=== PATIENT | female | born 1990 | race Asian ===

== ENCOUNTER 2019-11-15 17:35 | Inpatient (IN) | payer BC ==
[2019-11-15 18:41] VITALS: BMI 28.3
[2019-11-15] MEDS ORDERED: ELECTROLYTE-148 SOLN 1,000 ML IV SCH (18:45)
--- NOTE | 2019-11-15 18:58 | HP ---
Past Medical History - Primary Care Physician PCP:: Jhonathan Damico - Admission Chief Complaint: 29 yo P0 with at EGA 38w5d with SROM at 2:40pm and painful contractions since 4pm. History of Present Illness: care complicated by abdnormal GCT and negative GTT. She was followed for suspected LGA fetus and the last US was 3 wks ago showing AGA baby in 77th % ile. Vaginal GBS was negative. History Source: Patient, Medical Record Limitations to Obtaining History: No Limitations - Past Medical History RODENT EXTERMINATOR: No: Alzheimer's, CVA, Dementia, Migraine, Multiple Sclerosis, Peripheral Neuropathy, Parkinson's, Seizure, Syncope, TIA, Vertigo, Other Cardiovascular: No: AFIB, Aneurysm, Aortic Insufficiency, Aortic Stenosis, CAD, CHF, Deep Vein Thrombosis, HTN, Hyperlipdemia, IL, Mitral Insufficiency, Mitral Stenosis, Murmur, Pulmonary Hypertension, Other Pulmonary: No: Asthma, Bronchitis, Cancer, COPD, O2 Dependent, Pneumonia, Previously Intubated, Pulmonary Embolus, Pulmonary Fibrosis, Sleep Apnea, Other Gastrointestinal: No: Ascites, Cancer, Constipation, Crohn's Disease, Diverticulitis, Diverticulosis, Esophageal Varices, Gastritis, GERD, GI Bleed, Hemorrhoids, Hiatal Hernia, Inflamatory Bowel Disease, Irritable Bowel Disease, Pancreatitis, Peptic Ulcer Disease, Ulcerative Colitis, Other Hepatobiliary: No: Cirrhosis, Cholelithiasis, Cholecystitis, Choledocholithiasis , Hepatitis A, Hepatitis B, Hepatitis C, Other Renal/: No: Renal Failure, Renal Inusuff, BPH, Cancer, Hematuria, Hemodialysis , Neurogenic Bladder, Renal Calculi, UTI, Other Reproductive: No: Ectopic , Endometriosis, Fibroids, PID, Polycystic Ovary Syndrome, Postmenopausal, Other ...: 2 ...Para: 0 ...Term: 0 ...: 0 ...Spon : 1 ...Induced : 0 ...Multiple Gestation: 0 ...LMP: 02/12/19 ...EDC by Dates: 11/22/19 ...EDC by Sono: 11/24/19 Heme/Onc: No: Anemia, B12 Deficiency, Bleeding Disorder, Cancer, Current Chemotherapy, Current Radiation Therapy, Hemochromatosis, Hypercoaguable State, Myeloproliferative Synd, Sickle Cell Disease, Sickle Cell Trait, Thrombocytopenia, Other Infectious Disease: No: AIDS, C-Diff, Herpes Zoster, HIV, MRSA, STD's, Tuberculosis, VREF, Other Psych: No: Addictions, Anxiety, Bipolar, Depression, Panic, Psychosis, Schizophrenia, Other Musculoskeletal: No: Bursitis, Chronic low back pain, Hemiparesis, Hemiplegia, Osteoarthritis, Paraplegia, Other Rheumatology: No: Fibromyalgia, Gout, Lupus, Rheumatoid Arthritis, Sarcoidosis, Vasculitis, Other ENT: No: Allergic Rhinitis, Sinusitis, Other Endocrine: No: Natural Dam's Disease, Mike's Disease, Diabetes Insipidus, Diabetes Mellitus, Hyperparathyroidism, Hyperthyroidism, Hypothyroidism, Osteopenia, SIADH, Other Dermatology: No: Basal Cell, Cellulitis, Eczema, Melanoma, Psoriasis, Squamous Cell, Other - Past Surgical History Past Surgical History: Yes: None Hx Myomectomy: No Hx Transabdominal Cerclage: No - Smoking History Smoking history: Never smoked Have you smoked in the past 12 months: No - Alcohol/Substance Use Hx Alcohol Use: No History of Substance Use: reports: None - Social History Usual Living Arrangement: Yes: With Spouse Do you think of yourself as: Straight/Heterosexual ADL: Independent History of Recent Travel: No Home Medications - Allergies Allergies/Adverse Reactions: Allergies Allergy/AdvReac Type Severity Reaction Status Date / Time ampicillin Allergy Rash Verified 11/15/19 18:03 Penicillins Allergy Rash Verified 11/15/19 18:03 - Home Medications Home Medications: Ambulatory Orders Pnv No.95/Ferrous Fum/Folic AC [ Vitamin Tablet] 1 each PO DAILY Family Medical History Family History: Denies Review of Systems - Review of Systems Constitutional: reports: No Symptoms Eyes: reports: No Symptoms HENT: reports: No Symptoms Neck: reports: No Symptoms Cardiovascular: reports: No Symptoms Respiratory: reports: No Symptoms Gastrointestinal: reports: No Symptoms Genitourinary: reports: No Symptoms Breasts: reports: No Symptoms Reported Musculoskeletal: reports: No Symptoms Integumentary: reports: No Symptoms Neurological: reports: No Symptoms Endocrine: reports: No Symptoms Hematology/Lymphatic: reports: No Symptoms Psychiatric: reports: No Symptoms Pain Intensity: 8 Physical Exam - Maternity Vital Signs: Vital Signs Temperature 98.8 F 11/15/19 18:10 Pulse Rate 86 11/15/19 18:10 Respiratory Rate 20 11/15/19 18:10 Blood Pressure 127/81 11/15/19 18:10 O2 Sat by Pulse Oximetry (%) Constitutional: Yes: Well Nourished, No Distress, Calm Eyes: Yes: WNL, Conjunctiva Clear, EOM Intact HENT: Yes: WNL, Atraumatic, Normocephalic Neck: Yes: WNL, Supple, Trachea Midline Cardiovascular: Yes: WNL, Regular Rate and Rhythm Lungs: Clear to auscultation, Normal air movement - Abdominal Exam/OB Fundal Height: 39 Number of Fetuses: Single Presentation: Vertex Contractions: Yes Regularity: Irregular Intensity: Moderate Monitor Mode: External Heart Rate (range): 150 Heart Rate Location: Midline Category: I Accelerations: Uniform Decelerations: None - Vaginal Exam/OB Vaginal Bleediing: No Speculum Exam: No Dilatation (cm): 2 Effacement (%): 90 Amniotic Membrane Status: Leaking Nitrazine Test: Positive Amniotic Fluid: Yes: Clear Presentation: Vertex/Position Station: -1 (Gynecoid pelvimetry) - Physical Exam Musculoskeletal: Yes: WNL Extremities: Yes: WNL Edema: No Integumentary: Yes: WNL Deep Tendon Reflex Grade: Normal +2 ...Motor Strength: WNL Psychiatric: Yes: WNL, Alert, Oriented Hemorrhage Risk Assessment - Risk Factors Medium Risk Factors: Yes: None High Risk Factors: Yes: None Risk Score: 1 Risk Level: Medium Risk Imaging - Results Ultrasound: Report Reviewed Assessment/Plan 29 yo P0 with at EGA 38w5d with spontaneous early labor. Fetus with Category I tracing. Pt inquired about epidural. The anesthesia was contacted and awaiting labs. Plan to monitor labor and anticipate .
[2019-11-15] MEDS ORDERED: SODIUM CHLORIDE 0.9% P/F 10 ML VIAL IJ ONE (19:15)
[2019-11-15] MEDS ORDERED: BUPIVACAINE HCL/PF 0.25% (2.5MG/ML) 10 ML VIAL ONE (19:17)
[2019-11-15] MEDS ORDERED: FENTANYL/BUPIVACAINE/NS/PF - PCEA - 50 ML DISP.SYRIN EP ONE (19:25)
[2019-11-15 19:40] LABS: BASO % 0.3 % (0-2.0); EOS % 0.2 % (0-4.5); HEMATOCRIT 37.5 % (32.4-45.2); HEMOGLOBIN 12.3 GM/dL (10.7-15.3); LYMPH % 14.9 % (8-40); MCH 27.1 pg (25.7-33.7); MCHC 32.7 g/dl (32.0-36.0); MEAN PLT VOLUME 8.6 fl (7.5-11.1); MONO % 6.5 % (3.8-10.2); NEUT % 78.1 % (42.8-82.8); PLATELET COUNT 178 K/MM3 (134-434); RBC 4.52 M/mm3 (3.60-5.2); RDW 14.4 % (11.6-15.6)
[2019-11-15 19:51] LABS: INR 0.92 (0.83-1.09); PROTHROMBIN TIME (PATIENT) 10.8 SEC (9.7-13.0)
[2019-11-15 19:54] LABS: ACTIVATED PTT 29.5 SECONDS (25.2-36.5)
[2019-11-15] MEDS ORDERED: NALOXONE HCL 0.4 MG/ML VIAL IVPUSH PRN (20:08)
[2019-11-15 20:15] LABS: BLOOD UREA NITROGEN 12.5 mg/dL (7-18); CALCIUM 9.2 mg/dL (8.5-10.1); CREATININE 0.6 mg/dL (0.55-1.3); POTASSIUM 4.5 mmol/L (3.5-5.1)
[2019-11-15] MEDS ORDERED: FENTANYL/BUPIVACAINE/NS/PF - PCEA - 50 ML DISP.SYRIN EP SCH (20:15)
[2019-11-16] MEDS ORDERED: FENTANYL/BUPIVACAINE/NS/PF - PCEA - 50 ML DISP.SYRIN EP ONE ×2 (00:31→05:10)
--- NOTE | 2019-11-16 00:44 | PN ---
Ante-Partal Exam - Subjective Subjective: No complaints. Vital Signs: Vital Signs Temperature 98.7 F 11/15/19 22:00 Pulse Rate 95 H 11/15/19 22:30 Respiratory Rate 20 11/15/19 22:30 Blood Pressure 132/79 11/15/19 22:30 O2 Sat by Pulse Oximetry (%) 99 11/15/19 22:30 Bleeding: No Headache: No Visual changes: No Right upper quadrant pain: No Pain (scale 1-10): 0 - Contractions Contractions: Yes Regularity: Regular (q2min) Intensity: Unaware Monitor Mode: External - Exam during Labor Heart Rate: 135 Variability: Moderate Heart Rate Location: Midline Category: I Monitor Accelerations: Present Monitor Decelerations: None Exam: Vaginal Dilatation (cm): 7 Effacement (%): 90 Amniotic Membrane Status: Leaking Amniotic Fluid: Clear Presentation: Vertex Station: -1 Remarks: Gynecoid pelvimetry. EFW 3600 gram by Lavon maneuvers. - Intrapartum Hemorrhage Risk Medium Risk Factors: None High Risk Factors: None Risk Score: 0 Risk Level: Low Risk - Assessment/Plan Assessment/Plan: Pt progressed to active labor. Fetus with Category I tracing. Continue monitoring labor. Anticipate .
[2019-11-16] MEDS ORDERED: OXYTOCIN 20 UNITS in 0.9% NS 20 UNIT/1,000 ML INFUS.BAG IV ONE ×2 (07:32→12:53)
--- NOTE | 2019-11-16 08:13 | PN ---
Ante-Partal Exam - Subjective Subjective: Pt w/o complaints. Vital Signs: Vital Signs Temperature 98.0 F 11/16/19 08:06 Pulse Rate 101 H 11/16/19 07:15 Respiratory Rate 20 11/16/19 07:15 Blood Pressure 111/62 11/16/19 07:15 O2 Sat by Pulse Oximetry (%) 99 11/16/19 07:15 Bleeding: No Headache: No Visual changes: No Right upper quadrant pain: No Pain (scale 1-10): 0 - Contractions Contractions: Yes Regularity: Regular (q 5-6 min) Intensity: Mod/Strong Monitor Mode: External - Exam during Labor Heart Rate: 150 Variability: Moderate Heart Rate Location: Midline Category: I Monitor Accelerations: Present Monitor Decelerations: None Exam: Vaginal Dilatation (cm): 10 Effacement (%): 100 Amniotic Membrane Status: Leaking Nitrazine Test: Positive Amniotic Fluid: Clear Presentation: Vertex Station: 0 Remarks: Gynecoid pelvimetry - Intrapartum Hemorrhage Risk Medium Risk Factors: None High Risk Factors: None Risk Score: 0 Risk Level: Low Risk - Assessment/Plan Assessment/Plan: Pt progressed to second stage. She is comfortable and does not feel contractions. The contractions have spread out. Plan to augment with pitocin. Fetus with Category I tracing. Will turn off epidural and await pt being able to push.
[2019-11-16] MEDS ORDERED: OXYTOCIN 30 UNITS in 0.9% NS 30 UNIT/500 ML INFUS.BAG IVPB SCH (08:15)
[2019-11-16] MEDS ORDERED: LIDOCAINE HCL 1% PRESERVATIVE FREE - 30ML VIAL ONE (12:43)
[2019-11-16] MEDS ORDERED: OXYTOCIN 10 UNITS/ML VIAL ONE (13:01)
[2019-11-16] MEDS ORDERED: ELECTROLYTE IV SCH (13:15)
[2019-11-16] MEDS ORDERED: OXYTOCIN IV SCH (13:15)
[2019-11-16] MEDS ORDERED: oxyCODONE HCL 5 MG TABLET PO ONE (13:16)
[2019-11-16] MEDS ORDERED: ACETAMINOPHEN 1000 MG/100 ML VIAL (NON FORMULARY) IVPB ONE (13:17)
[2019-11-16] MEDS ORDERED: BENZOCAINE 28 GM HEMORRHOIDAL OINTMENT TP PRN (13:31)
[2019-11-16] MEDS ORDERED: METHYLERGONOVINE MALEATE 0.2 MG/1 ML AMP IM PRN (13:31)
[2019-11-16] MEDS ORDERED: WITCH HAZEL 50% (TUCKS) 40 PAD/JAR PAD TP PRN (13:31)
[2019-11-16] MEDS ORDERED: BENZOCAINE 20% 57 GM BOTTLE TP PRN (13:31)
[2019-11-16] MEDS ORDERED: OXYTOCIN 20 UNITS in 0.9% NS 20 UNIT/1,000 ML INFUS.BAG IV SCH (13:45)
[2019-11-16] MEDS ORDERED: CLINDAMYCIN PHOSPHATE 600 MG/4 ML VIAL ONE (14:03)
[2019-11-16] MEDS: CLINDAMYCIN 900 MG PREMIX IVPB 900 MG/50 ML BAG IVPB SCH ×2 (14:04→18:49)
[2019-11-16] MEDS: GENTAMICIN INJECTION 100 MG in SODIUM CHLORIDE 97.5 ML IVPB SCH ×2 (14:44→21:19)
--- NOTE | 2019-11-16 15:21 | PN ---
Delivery - Delivery Vaginal Delivery: No Problems, Spontaneous Type of Anesthesia: Epidural Episiotomy/Laceration: Midline EBL (cc): 600 Delivery, Single - Stages of Labor Date 1st Stage Initiatied: 11/15/19 Time 1st Stage Initiated: 16:00 Date 2nd Stage Initiated: 11/16/19 Time 2nd Stage Initiated: 08:00 Date of Delivery: 11/16/19 Time of Delivery: 11:55 Date Placenta Delivered: 11/16/19 Time Placenta Delivered: 12:30 Placenta: Yes: Spontaneous, Normal Configuration - Condition of Organ Grinder/General Technician Present: No Gender: Male Weight: 3.941 kg Total Hours ROM (Hrs/Mins): 21/50 - 1 Minute Total Score: 9 5 Minutes Total Score: 10 - Feeding Plan Initial Plan: Exclusive throughout hospitalization Benefits of Exclusively reinforced: Yes Remarks - Remarks Remarks: Retained placenta necessitating manual removal of placenta. Followed by uterine atony and hemorrhage. The atony was treated with uterine massages, IV pitocin and IM Methergine. The atony resolved after several uterine massages and meds.
[2019-11-16] MEDS: oxyCODONE HCL 5 MG TABLET PO PRN (19:37)
[2019-11-16] MEDS: IBUPROFEN 600 MG TABLET (FP) PO PRN ×2 (19:38→23:38)
[2019-11-17] MEDS: oxyCODONE HCL 5 MG TABLET PO PRN ×2 (00:37→05:42)
[2019-11-17] MEDS: CLINDAMYCIN 900 MG PREMIX IVPB 900 MG/50 ML BAG IVPB SCH ×3 (01:00→17:09)
[2019-11-17] MEDS: GENTAMICIN INJECTION 100 MG in SODIUM CHLORIDE 97.5 ML IVPB SCH ×2 (05:32→14:29)
[2019-11-17] MEDS: IBUPROFEN 600 MG TABLET (FP) PO PRN ×4 (05:41→21:37)
[2019-11-17 07:33] LABS: BASO % 0.5 % (0-2.0); EOS % 0.5 % (0-4.5); HEMATOCRIT 26.9 % (32.4-45.2); HEMOGLOBIN 8.8 GM/dL (10.7-15.3); LYMPH % 14.1 % (8-40); MCH 27.1 pg (25.7-33.7); MCHC 32.7 g/dl (32.0-36.0); MEAN CELL VOLUME 82.8 fl (80-96); MEAN PLT VOLUME 8.4 fl (7.5-11.1); MONO % 7.3 % (3.8-10.2); NEUT % 77.6 % (42.8-82.8); PLATELET COUNT 128 K/MM3 (134-434); RBC 3.24 M/mm3 (3.60-5.2); RDW 14.5 % (11.6-15.6); WHITE BLOOD COUNT 13.6 K/mm3 (4.0-10.0)
[2019-11-17] MEDS: PRENATAL VITAMINS W/ FOLIC ACID TABLET (FP) PO SCH (09:57)
[2019-11-17] MEDS: ACETAMINOPHEN 325 MG TABLET (FP) PO PRN ×3 (10:56→21:38)
[2019-11-17] MEDS: BISACODYL 10 MG SUPP.RECT RC PRN (11:44)
--- NOTE | 2019-11-17 12:42 | PN ---
Post Progress Note - Subjective Subjective: Pt with pain at episiotomy site. She feels well o/w. Post Day: 1 Type of Delivery: Vital Signs: Vital Signs Temperature 97.7 F 11/17/19 10:00 Pulse Rate 90 11/17/19 10:00 Respiratory Rate 18 11/17/19 10:00 Blood Pressure 96/61 11/17/19 10:00 O2 Sat by Pulse Oximetry (%) 100 11/16/19 15:50 Breast Exam: Yes: Soft Uterus: Yes: Fundus Firm, Fundus below umbilicus, Non-tender Abdomen/GI: Yes: Abdomen soft, Passing flatus, Tolerating PO Lochia: Yes: Rubra Lochia, amount: Small Extremities: Yes: Calves non-tender, Edema (trace) Perineum: Yes: Episiotomy (repair is intact) Activity: Ambulating - Labs Labs: CBC WBC 13.6 K/mm3 (4.0-10.0) H 11/17/19 07:15 RBC 3.24 M/mm3 (3.60-5.2) L 11/17/19 07:15 Hgb 8.8 GM/dL (10.7-15.3) L 11/17/19 07:15 Hct 26.9 % (32.4-45.2) L D 11/17/19 07:15 MCV 82.8 fl (80-96) 11/17/19 07:15 MCH 27.1 pg (25.7-33.7) 11/17/19 07:15 MCHC 32.7 g/dl (32.0-36.0) 11/17/19 07:15 RDW 14.5 % (11.6-15.6) 11/17/19 07:15 Plt Count 128 K/MM3 (134-434) L D 11/17/19 07:15 MPV 8.4 fl (7.5-11.1) 11/17/19 07:15 Absolute Neuts (auto) 10.6 K/mm3 (1.5-8.0) H 11/17/19 07:15 Neutrophils % 77.6 % (42.8-82.8) 11/17/19 07:15 Lymphocytes % 14.1 % (8-40) 11/17/19 07:15 Monocytes % 7.3 % (3.8-10.2) 11/17/19 07:15 Eosinophils % 0.5 % (0-4.5) D 11/17/19 07:15 Basophils % 0.5 % (0-2.0) 11/17/19 07:15 Nucleated RBC % 0 % (0-0) 11/17/19 07:15 Assessment/Plan 29 yo P1 s/p complicated by manual removal of placenta and PPH due to uterine atony. Pt is doing well, stable, afebrile. Lochia is scant.
[2019-11-17] MEDS ORDERED: SENNOSIDES/DOCUSATE COMBO (SENNA PLUS) TABLET (UD) PO PRN (22:00)
[2019-11-18] MEDS: GENTAMICIN INJECTION 100 MG in SODIUM CHLORIDE 97.5 ML IVPB SCH
[2019-11-18 09:24] VITALS: BP 121/83; PULSE 116; TEMP 98
[2019-11-18] MEDS: ACETAMINOPHEN 325 MG TABLET (FP) PO PRN (09:26)
[2019-11-18] MEDS: IBUPROFEN 600 MG TABLET (FP) PO PRN (09:27)
[2019-11-18] MEDS: PRENATAL VITAMINS W/ FOLIC ACID TABLET (FP) PO SCH (09:27)
[2019-11-18] MEDS: BISACODYL 10 MG SUPP.RECT RC PRN (10:32)
--- NOTE | 2019-11-18 12:18 | DS ---
Physical Exam-MOTION PICTURE ACTOR Vital Signs: Vital Signs Temperature 98 F 11/18/19 09:23 Pulse Rate 116 H 11/18/19 09:23 Respiratory Rate 18 11/18/19 09:23 Blood Pressure 121/83 11/18/19 09:23 O2 Sat by Pulse Oximetry (%) 100 11/16/19 15:50 Constitutional: Yes: Well Nourished, No Distress, Calm Eyes: Yes: WNL, Conjunctiva Clear, EOM Intact HENT: Yes: WNL, Atraumatic, Normocephalic Neck: Yes: WNL, Supple, Trachea Midline Cardiovascular: Yes: WNL Respiratory: Yes: WNL Gastrointestinal: Yes: WNL ...Rectal Exam: Yes: WNL Renal/: Yes: WNL ....Post : Yes: Uterus firm, Uterus non-tender, Slight lochia rubra Breast(s): Yes: WNL Musculoskeletal: Yes: WNL Extremities: Yes: WNL Edema: LLE: Trace, RLE: Trace Integumentary: Yes: WNL Neurological: Yes: WNL ...Motor Strength: WNL Psychiatric: Yes: WNL, Alert, Oriented Labs: CBC, BMP 11/17/19 07:15 11/15/19 19:15 Delivery - Delivery Vaginal Delivery: No Problems, Spontaneous Type of Anesthesia: Epidural Episiotomy/Laceration: Midline EBL (cc): 600 Delivery, Single - Stages of Labor Date 1st Stage Initiatied: 11/15/19 Time 1st Stage Initiated: 16:00 Date 2nd Stage Initiated: 11/16/19 Time 2nd Stage Initiated: 08:00 Date of Delivery: 11/16/19 Time of Delivery: 11:55 Time Placenta Delivered: 12:30 Placenta: Yes: Spontaneous, Normal Configuration - Condition of Infant Catering Convention Services Manager/Rail Doweling Machine Operator Present: No Gender: Male Weight: 8 lb 11 oz Total Hours ROM (Hrs/Mins): 21/50 - 1 Minute Total Score: 9 5 Minutes Total Score: 10 - Feeding Plan Initial Plan: Exclusive throughout hospitalization Benefits of Exclusively reinforced: Yes Discharge Summary Problems reviewed: Yes Reason For Visit: LABOR labor Procedures: Principal: Hospital Course: no complication Condition: Good - Instructions Diet, Activity, Other Instructions: regular diet , no intercourse , if fever, heavy vaginal bleeding , pain call md follow up office 4 week Referrals: Jhonathan Damico MD [Staff Physician] - Disposition: HOME - Home Medications Comprehensive Discharge Medication List: Ambulatory Orders Pnv No.95/Ferrous Fum/Folic AC [ Vitamin Tablet] 1 each PO DAILY Ibuprofen [Motrin -] 600 mg PO QID #28 tablet 11/17/19
== END 2019-11-18 14:30 | disposition home or self-care (01) | DRG 807 ==
LOC: JDEL 17:35 → JLDR 18:10 → J3W 11-16 15:37
PROVIDERS: ADMIT Obstetrics & Gynecology; ATTEND Obstetrics & Gynecology
PROC: 10E0XZZ Delivery of Products of Conception, External Approach (ICD-10-PCS; principal; 2019-11-16)
PROC: 0W8NXZZ Division of Female Perineum, External Approach (ICD-10-PCS; 2019-11-16)
DX: O80 Encounter for full-term uncomplicated delivery (principal); Z3A.38 38 weeks gestation of pregnancy; Z37.0 Single live birth
CPT/HCPCS: 36415; 59409; 80048; 85025; 85610; 85730; 86593; 86850; 86900; 86901; J0131